=== PATIENT | male | born 1960 | race Caucasian/White ===

== ENCOUNTER → 2021-08-17 | Day surgery (SDC) | payer BC ==
[~2021-08-17] MED LIST: AMLODIPINE BESY10 MG PO; ANORO ELLIPTA1 EACH INH; CYCLOBENZAPRINE10 MG PO; DALIRESP500 MCG PO; FLOMAX 0.4 MG0.4 MG PO; LEVOCETIRIZINE D5 MG PO; NEXIUM40 MG PO; NORCO 5-325 TA1 EACH PO; PREDNISONE20 MG PO; SYMBICORT 160-1 INHA INH; VENTOLIN/PROVE0.5 ML INH
== END | disposition home or self-care (01) ==
LOC: OR 05:50
DX: Z12.11 Encounter for screening for malignant neoplasm of colon (principal); D12.0 Benign neoplasm of cecum; D12.4 Benign neoplasm of descending colon; N40.0 Benign prostatic hyperplasia without lower urinary tract symptoms; K57.30 Diverticulosis of large intestine without perforation or abscess without bleeding; I10 Essential (primary) hypertension; E78.5 Hyperlipidemia, unspecified; J44.9 Chronic obstructive pulmonary disease, unspecified; K21.9 Gastro-esophageal reflux disease without esophagitis; M19.90 Unspecified osteoarthritis, unspecified site; Z79.899 Other long term (current) drug therapy; Z87.891 Personal history of nicotine dependence; Z86.010 Personal history of colon polyps
CPT/HCPCS: J2250; J2704; J3010; J7120